=== PATIENT | female | born 1970 | race Hispanic/Latino ===

== ENCOUNTER 2022-07-18 21:25 | Emergency (ER) | payer BC ==
[~2022-07-18] VITALS: Ht 152.4 cm; Wt 63.5 kg
[2022-07-18 22:30] LABS: BASOPHILS % (AUTO) 0.4 % (0.0-5.0); EOSINOPHILS % (AUTO) 2.5 % (0.0-8.0); HEMATOCRIT 36.5 % (36-48); LYMPHOCYTES % (AUTO) 10.2 % (21.0-51.0); MEAN CORPUSCULAR HEMOGLOBIN 29.7 pg (27.0-33.0); MEAN CORPUSCULAR VOLUME 87.5 fL (79-99); MONOCYTES % (AUTO) 8.8 % (3.0-13.0); NEUTROPHILS % (AUTO) 77.7 % (40.0-77.0); PLATELET COUNT (AUTO) 242 K/uL (130-400); RED BLOOD CELL COUNT(AUTO) 4.17 MIL/uL (4.00-5.50); RED CELL DISTRIBUTION WIDTH 12.4 % (11.0-15.5); WHITE BLOOD COUNT (AUTO) 14.3 K/uL (4.8-10.8)
[2022-07-18 22:40] LABS: POTASSIUM 3.6 mmol/L (3.5-5.1)
[2022-07-18 22:44] LABS: ALBUMIN 3.4 g/dL (3.5-5.0)
[2022-07-18 23:00] VITALS: BP 134/60
[2022-07-19 00:51] LABS: APPEARANCE,URINE CLEAR (CLEAR); BILIRUBIN,URINE NEGATIVE (NEGATIVE); COLOR,URINE LIGHT-YELLOW (YELLOW); GLUCOSE, URINE (UA) NEGATIVE (NEGATIVE); KETONES,URINE NEGATIVE (NEGATIVE); LEUKOCYTE ESTERASE ,URINE NEGATIVE Leu/uL (NEGATIVE); NITRATE,URINE NEGATIVE (NEGATIVE); OCCULT BLOOD,URINE SMALL (NEGATIVE); PH,URINE 7.5 (5.0-8.0); PROTEIN,URINE NEGATIVE (NEGATIVE); UROBILINOGEN,URINE 0.2 mg/dL (0.2-1.0)
[2022-07-19 00:53] LABS: MUCUS,URINE RARE LPF (None Seen); SQUAMOUS EPITHELIAL CELL,UR FEW /HPF (0-2); WBC,URINE 0-1 /HPF (0-1)
== END 2022-07-19 01:11 | disposition home or self-care (01) ==
LOC: EDH 21:25
DX: R10.11 Right upper quadrant pain (principal)
CPT/HCPCS: 36415; 71045; 76705; 80053; 81001; 84484; 84703; 85025; 93005

== ENCOUNTER 2023-12-03 15:54 | Emergency (ER) | payer OTHER, BC ==
[~2023-12-03] VITALS: Ht 152.4 cm; Wt 59.4 kg
[2023-12-03] MEDS: MORPHINE 2 MG SYG IVP STA (16:57)
[2023-12-03] MEDS: ONDANSETRON 4MG INJ IVP STA (16:57)
[2023-12-03] MEDS ORDERED: METH-662 PO (17:24)
[2023-12-03 18:00] VITALS: BP 154/84; PULSE 78; RESP 18; O2SAT 98
== END 2023-12-03 18:00 | disposition home or self-care (01) ==
LOC: EDH 15:54
DX: M62.830 Muscle spasm of back (principal)
CPT/HCPCS: 99285; 70450; 96374; 96375; 72125; 72131; J2270; J2405